=== PATIENT | male | born 1995 | race Caucasian/White ===

== ENCOUNTER 2018-02-24 20:58 | Emergency (ER) | payer OTHER ==
[2018-02-24 21:04] VITALS: BP 153/80
[2018-02-24] MEDS ORDERED: PREDNISONE 20 MG TABLET PO ONE (21:24)
[2018-02-24] MEDS ORDERED: HYDROXYZINE PAMOATE 50 MG CAPSULE PO ONE (21:24)
--- NOTE | 2018-02-24 21:27 | ER Document Report ---
HPI - HPI Patient complains to provider of: Skin rash Onset: Other - 2 weeks Onset/Duration: Persistent Pain Level: 5 Context: Patient complains of pruritic skin rash for the past 2 weeks. Patient denies any new foods medications or detergents. Patient denies any recent gardening or possible exposure to poison jose. Associated Symptoms: Other - Skin rash. denies: Fever, Headache Exacerbated by: Denies Relieved by: Denies Similar symptoms previously: No Recently seen / treated by doctor: No - ROS ROS below otherwise negative: Yes Systems Reviewed and Negative: Yes All other systems reviewed and negative - CONSTITUTIONAL Constitutional: DENIES: Fever, Chills - EENT EENT: DENIES: Sore Throat - NEURO Neurology: DENIES: Headache - GASTROINTESTINAL Gastrointestinal: DENIES: Nausea, Patient vomiting - DERM Skin Color: Erythema Skin Problems: Rash Past Medical History - General Information source: Patient - Social History Smoking Status: Never Smoker Occupation: Active duty Lives with: Spouse/Significant other Family History: Reviewed & Not Pertinent - Medical History Medical History: Negative Surgical Hx: Negative Vertical Provider Document - CONSTITUTIONAL Agree With Documented VS: Yes Exam Limitations: No Limitations General Appearance: WD/WN, No Apparent Distress - INFECTION CONTROL TRAVEL OUTSIDE OF THE [place] IN LAST 30 DAYS: No - HEENT HEENT: Atraumatic, Normal ENT Exam - NECK Neck: Normal Inspection, Supple. negative: Lymphadenopathy-Left, Lymphadenopathy-Right - RESPIRATORY Respiratory: Breath Sounds Normal, No Respiratory Distress - CARDIOVASCULAR Cardiovascular: Regular Rate, Regular Rhythm - BACK Back: Normal Inspection - MUSCULOSKELETAL/EXTREMETIES Musculoskeletal/Extremeties: MAEW - NEURO Level of Consciousness: Awake, Alert, Appropriate Motor/Sensory: No Motor Deficit - DERM Integumentary: Warm, Dry, Rash - Patient with diffuse erythematous maculopapular rash with excoriations to extremities and face. Rash to trunk in a sun exposed distribution pattern Course - Re-evaluation Re-evalutation: 02/24/18 21:26 Patient encouraged to follow-up with his primary doctor for referral to dermatology given how extensive his rash is. Patient advised that he may need allergy testing as well. Patient without any difficulty breathing or swallowing , no concern for anaphylaxis. - Vital Signs Vital signs: Temp Pulse Resp BP Pulse Ox 97.8 F 92 16 153/80 H 98 02/24/18 21:03 02/24/18 21:03 02/24/18 21:03 02/24/18 21:03 02/24/18 21:03 Discharge - Discharge Clinical Impression: Skin rash Condition: Stable Disposition: HOME, SELF-CARE Instructions: Antihistamines ([facility]), Steroid Medication Additional Instructions: Return immediately for any new or worsening symptoms Followup with your primary care provider, call tomorrow to make a followup appointment Follow-up with dermatology for further evaluation, call tomorrow for an appointment Prescriptions: Hydroxyzine HCl [Atarax 25 mg Tablet] 1 - 2 tab PO QID #25 tablet Prednisone [Deltasone 5 mg Tablet] 5 mg PO ASDIR PRN #100 tablet PRN Reason: Referrals: [facility] [Provider Group] - Follow up as needed
== END 2018-02-24 21:35 | disposition home or self-care (01) ==
LOC: ER 20:58
DX: R21 Rash and other nonspecific skin eruption (principal); L29.9 Pruritus, unspecified
CPT/HCPCS: 99282; J7512

== ENCOUNTER 2018-05-14 10:49 | Emergency (ER) | payer OTHER ==
[2018-05-14 11:05] VITALS: BP 160/89
[2018-05-14] MEDS ORDERED: DOXYCYCLINE HYCLATE 100 MG TABLET PO ONE (12:09)
--- NOTE | 2018-05-14 12:10 | ER Document Report ---
ED Skin Rash/Insect Bite/Abscs - General Chief Complaint: Rash Stated Complaint: RASH Time Seen by Provider: 05/14/18 11:29 Mode of Arrival: Ambulatory Information source: Patient Notes: 22-year-old male presented to ED for complaint of rash to face neck and left arm. Patient states he has been seen multiple times for this rash and has been put on prednisone for about 2 months. He has a dermatology appointment in May. 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 He states he supposed to be leaving the country pretty soon and is running out of his prednisone. He states he knows it is just the type of acne but it is painful and itchy and he needs something to help with that now. Patient is alert and oriented respirations regular and unlabored speaking in full sentences walking with a even steady gait. TRAVEL OUTSIDE OF THE [place] IN LAST 30 DAYS: No - HPI Patient complains to provider of: Skin rash/lesion Onset: Other - More than 2 months Onset/Duration: Persistent Quality of pain: Burning - Itchy Severity: Moderate Pain Level: 3 Skin Character: Erythema, Rash Quality of rash: Itchy, Painful, Burning Identify cause: Yes - Been seen multiple times Exacerbated by: Denies Relieved by: Denies Similar symptoms previously: Yes Recently seen / treated by doctor: Yes - Related Data Allergies/Adverse Reactions: No Known Allergies Allergy (Unverified 05/14/18 10:57) Past Medical History - General Information source: Patient - Social History Smoking Status: Never Smoker Frequency of alcohol use: None Drug Abuse: None Lives with: Family Family History: Reviewed & Not Pertinent Patient has suicidal ideation: No Patient has homicidal ideation: No - Past Medical History Cardiac Medical History: Reports: None Pulmonary Medical History: Reports: None EENT Medical History: Reports: None Neurological Medical History: Reports: None Endocrine Medical History: Reports: None Renal/ Medical History: Reports: None Malignancy Medical History: Reports None GI Medical History: Reports: None Musculoskeletal Medical History: Reports None Skin Medical History: Reports None Psychiatric Medical History: Reports: None Traumatic Medical History: Reports: None Infectious Medical History: Reports: None Surgical Hx: Negative Past Surgical History: Reports: None - Immunizations Immunizations up to date: Yes Hx Diphtheria, Pertussis, Tetanus Vaccination: Yes Review of Systems - Review of Systems Constitutional: No symptoms reported EENT: No symptoms reported Cardiovascular: No symptoms reported Respiratory: No symptoms reported Gastrointestinal: No symptoms reported Genitourinary: No symptoms reported Male Genitourinary: No symptoms reported Musculoskeletal: No symptoms reported Skin: Rash - Red and inflamed acne to face neck upper back Hematologic/Lymphatic: No symptoms reported Neurological/Psychological: No symptoms reported -: Yes All other systems reviewed and negative Physical Exam - Vital signs Vitals: Temp Pulse Resp BP Pulse Ox 98.5 F 92 16 160/89 H 98 05/14/18 11:03 05/14/18 11:03 05/14/18 11:03 05/14/18 11:03 05/14/18 11:03 Interpretation: Normal - General General appearance: Appears well, Alert - HEENT Head: Normocephalic, Atraumatic Eyes: Normal Pupils: PERRL - Respiratory Respiratory status: No respiratory distress Chest status: Nontender Breath sounds: Normal Chest palpation: Normal - Cardiovascular Rhythm: Regular Heart sounds: Normal auscultation Murmur: No - Abdominal Inspection: Normal Distension: No distension Bowel sounds: Normal Tenderness: Nontender Organomegaly: No organomegaly - Back Back: Normal, Nontender - Extremities General upper extremity: Normal inspection, Nontender, Normal color, Normal ROM, Normal temperature General lower extremity: Normal inspection, Nontender, Normal color, Normal ROM, Normal temperature, Normal weight bearing. No: Roger's sign - Neurological Neuro grossly intact: Yes Cognition: Normal Orientation: AAOx4 [place] Coma Scale Eye Opening: Spontaneous [place] Coma Scale Verbal: Oriented [place] Coma Scale Motor: Obeys Commands [place] Coma Scale Total: 15 Speech: Normal Motor strength normal: LUE, RUE, LLE, RLE Sensory: Normal - Psychological Associated symptoms: Normal affect, Normal mood - Skin Skin Temperature: Warm Skin Moisture: Dry Skin Color: Normal Skin irregularity: Rash - Inflamed acne Location of irregularity: Face, Neck, Chest - Upper chest, Back - Upper back Character of irregularity: Erythematous Irregularity with: Tenderness, Inflammation Course - Vital Signs Vital signs: Temp Pulse Resp BP Pulse Ox 98.5 F 92 16 160/89 H 98 05/14/18 11:03 05/14/18 11:03 05/14/18 11:03 05/14/18 11:03 05/14/18 11:03 Discharge - Discharge Clinical Impression: Rash and nonspecific skin eruption Condition: Stable Disposition: HOME, SELF-CARE Additional Instructions: Acne Acne is a disease of the skin's sebaceous glands. These "pores" produce a waxy substance called sebum. Before puberty, these glands are not very active. Acne is caused by hormones, which lead to excess production of sebum and bacterial inflammation in the glands. It can range in severity from an occasional pimple to constant multiple deep abscesses that leave scars. Blackheads: These are pores clogged with sebum and skin cells. The exposed material turns black. Whiteheads: Bacteria growing in the enlarged pore cause inflammation. A white collection of trapped pus, surrounded by red raised skin, is also called a "pimple." Furuncles and boils: This is the most serious stage of acne. An infected pore lets bacteria invade the deeper layers below the skin. A hard, red, tender lump forms. A collection of pus is at the core of this lump. This type of acne can leave significant scars. Modern acne treatment is usually very effective, although it may take up to four weeks before you notice improvement. Benzoyl peroxide cream or gel can treat milder cases. Prescription medicines used for acne include antibiotic pills, antibiotic skin treatments, and tretinoin (Retin-A). Skin gels and lotions can make the skin red, dry, and peeling. Severe cases may require Accutane. Accutane can have significant side effects, so treatment needs to be monitored by a physician. Tops of whiteheads may be lanced with a sterile needle to allow pus drainage. Apply hot compresses to tender pimples. Don't squeeze pimples. Acne can be affected by your level of stress, physical activity, and the cleanliness of your skin. It is NOT worsened by anything you eat. Acne goes away with time, although some adults continue to have an occasional flare. Most teenagers with acne will be free of symptoms by the time they're 21 years old. See the doctor if you have a tender lump larger than 1 centimeter (3/8 inch) in size, tender spreading redness, fever, or continued drainage from a skin sore. Doxycycline Doxycycline (Vibramycin, Doryx) is an antibiotic of the tetracycline family. This type of drug is useful for infections of the respiratory tract and genital tract, and is sometimes used for intestinal infections. Unlike most tetracyclines, doxycycline can be taken with food. It is longer acting, and (usually) less prone to side effects than regular tetracycline. Tetracyclines can make you more prone to sunburn. Abdominal cramping, nausea, and diarrhea are occasional side effects. Women may experience vaginal yeast infections. Call the doctor at once if you develop hives, itching, shortness of breath, or lightheadedness. FOLLOW-UP CARE: If you have been referred to a physician for follow-up care, call the physicians office for an appointment as you were instructed or within the next two days. If you experience worsening or a significant change in your symptoms, notify the physician immediately or return to the Emergency Department at any time for re-evaluation. Follow-up with your primary doctor and with your long term care administrator as scheduled. Prescriptions: Doxycycline Hyclate 100 mg PO BID #20 capsule Forms: Elevated Blood Pressure
== END 2018-05-14 12:22 | disposition home or self-care (01) ==
LOC: ER 10:49
DX: R21 Rash and other nonspecific skin eruption (principal)
CPT/HCPCS: 99283

== ENCOUNTER 2018-05-15 08:28 | Emergency (ER) | payer OTHER ==
[2018-05-15] MEDS ORDERED: NORMAL SALINE 1000 ML 1,000 ML IV ONE (09:35)
[2018-05-15 10:11] LABS: ABSOLUTE BASOPHILS # (AUTO) 0.1 10^3/uL (0.0-0.2); ABSOLUTE EOSINOPHILS # (AUTO) 0.5 10^3/uL (0.0-0.6); ABSOLUTE LYMPHOCYTES (AUTO) 2.1 10^3/uL (0.5-4.7); ABSOLUTE MONOCYTES (AUTO) 1.4 10^3/uL (0.1-1.4); ABSOLUTE NEUT (AUTO) 10.1 10^3/uL (1.7-8.2); BASOPHILS % (AUTO) 0.4 % (0-2); EOSINOPHILS % (AUTO) 3.7 % (0-6); HEMATOCRIT 50.7 % (37.9-51.0); HEMOGLOBIN 17.6 g/dL (13.5-17.0); LYMPHOCYTES % (AUTO) 14.9 % (13-45); MEAN CORPUSCULAR HEMOGLOBIN 29.5 pg (27.0-33.4); MEAN CORPUSCULAR HGB CONC 34.8 g/dL (32.0-36.0); MEAN CORPUSCULAR VOLUME 85 fl (80-97); MONOCYTES % (AUTO) 9.9 % (3-13); PLATELET COUNT 447 10^3/uL (150-450); RED BLOOD COUNT 5.98 10^6/uL (4.35-5.55); RED CELL DISTRIBUTION WIDTH 13.6 % (11.5-14.0); SEGMENTED NEUTROPHILS % (AUTO) 71.1 % (42-78); TOTAL CELLS COUNTED % (AUTO) 100 %; WHITE BLOOD COUNT 14.1 10^3/uL (4.0-10.5)
[2018-05-15 10:26] LABS: ANION GAP 11 (5-19); BLOOD UREA NITROGEN 17 mg/dL (7-20); CALCIUM 10.3 mg/dL (8.4-10.2); CARBON DIOXIDE 30 mmol/L (22-30); CHLORIDE 100 mmol/L (98-107); GLUCOSE 79 mg/dL (75-110); POTASSIUM 4.4 mmol/L (3.6-5.0); SODIUM 140.9 mmol/L (137-145)
--- NOTE | 2018-05-15 10:38 | RADIOLOGY REPORT (SQ) ---
EXAM DESCRIPTION: CT FACIAL AREA WITH COMPLETED DATE/TIME: 05/15/2018 10:09 am REASON FOR STUDY: concern for orbital cellulitis left eye COMPARISON: None. TECHNIQUE: Post contrast images through the facial bones and orbits windowed for bone and soft tissu e. Additional coronal and sagittal reconstructed images reviewed. All images stored on PACS. All CT scanners at this facility use dose modulation, iterative reconstruction, and/or weight based d osing when appropriate to reduce radiation dose to as low as reasonably achievable (ALARA). [facility]: Dose Right [facility]: CareDose [facility]: Dose Right [facility]: Teradose 4D [facility]: FanXT CONTRAST TYPE AND DOSE: contrast/concentration: Isovue 350.00 mg/ml; Total Contrast Delivered: 75.0 ml; Total Saline Delivered: 55.0 ml RENAL FUNCTION: Not available. RADIATION DOSE: CT Rad equipment meets quality standard of care and radiation dose reduction techniq ues were employed. CTDIvol: 30.4 mGy. DLP: 551 mGy-cm. . LIMITATIONS: None. FINDINGS: FACIAL BONES: No fracture or bone lesion. ORBITS: Intact. No fracture. Symmetric intact globes and retroorbital soft tissues. PARANASAL SINUSES: Mucosal thickening is noted within the maxillary and ethmoid sinuses. No abnormal ity of the sphenoid sinus. Nasal septal deviation to the left. SOFT TISSUES: There is evidence of soft tissue thickening preseptal region of left orbit and adjacen t to left nasal bone extending laterally in region of zygoma. These findings are consistent with joel lulitis. No evidence of intraorbital extension. INFERIOR BRAIN: Limited view. No acute findings. OTHER: There is evidence of a dominant right vertebral artery. No definite abnormality of visualized intracranial vessels seen. No abnormality of the visualized right and left common carotid and inter nal carotid vessels. Small periparotid and cervical nodes noted. IMPRESSION: Evidence of preseptal cellulitis of the left orbit and cellulitis of left nasal region. COMMENT: Report called to Dr. Huang. TECHNICAL DOCUMENTATION: JOB ID: [id number]-69 Quality ID # [id number]: Final reports with documentation of one or more dose reduction techniques (e.g., Au tomated exposure control, adjustment of the mA and/or kV according to patient size, use of iterative reconstruction technique) 2010 [employer]- All Rights Reserved Reading location - IP/workstation name: [email or web address]
[2018-05-15] MEDS ORDERED: CEFTRIAXONE 2 GM/D5W RTU 2 GM/50 ML RTUPB IV ONE (11:23)
--- NOTE | 2018-05-15 12:08 | ER Document Report ---
ED Eye Complaint - General Chief Complaint: Eye Problem Stated Complaint: EYE PAIN Time Seen by Provider: 05/15/18 08:53 Mode of Arrival: Ambulatory Information source: Patient TRAVEL OUTSIDE OF THE [place] IN LAST 30 DAYS: No - HPI Patient complains to provider of: eye swelling Onset: Other - Is a 22-year-old man with chronic rash over the last several months that presents for evaluation of facial swelling over the left side of the face for which she was evaluated yesterday. He has been seen by primary physician in regards to the rash which she has chronically and is scheduled to see a consumer relations specialist in the coming month yesterday had been seen in the emergency department and told that he had acne and was started on tetracycline. He returned because his left eye seemed to swell thereafter and his vision seems somewhat blurred because of the junk around his eye. He denies fevers or chills, lightheadedness, chest pain shortness of breath abdominal pain diarrhea constipation dysuria. Nothing is seem to make this any better, time seems to be making it worse. Eye location: Left Injury: No - Related Data Allergies/Adverse Reactions: No Known Allergies Allergy (Verified 05/15/18 08:29) Past Medical History - General Information source: Patient - Social History Smoking Status: Unknown if Ever Smoked Family History: Reviewed & Not Pertinent Renal/ Medical History: Denies: Hx Peritoneal Dialysis - Immunizations Immunizations up to date: Yes Hx Diphtheria, Pertussis, Tetanus Vaccination: Yes Review of Systems - Review of Systems -: Yes All other systems reviewed and negative Physical Exam - Vital signs Vitals: Temp Pulse Resp BP Pulse Ox 98.2 F 92 18 148/97 H 97 05/15/18 08:31 05/15/18 08:31 05/15/18 08:31 05/15/18 08:31 05/15/18 08:31 Interpretation: Normal - General General appearance: Appears well, Alert - HEENT Head: Normocephalic, Atraumatic Eyes: Normal Pupils: PERRL - Respiratory Respiratory status: No respiratory distress Chest status: Nontender Breath sounds: Normal Chest palpation: Normal - Cardiovascular Rhythm: Regular Heart sounds: Normal auscultation Murmur: No - Abdominal Inspection: Normal Distension: No distension Bowel sounds: Normal Tenderness: Nontender Organomegaly: No organomegaly - Back Back: Normal, Nontender - Extremities General upper extremity: Normal inspection, Nontender, Normal color, Normal ROM, Normal temperature General lower extremity: Normal inspection, Nontender, Normal color, Normal ROM, Normal temperature, Normal weight bearing. No: Roger's sign - Neurological Neuro grossly intact: Yes Cognition: Normal Orientation: AAOx4 [place] Coma Scale Eye Opening: Spontaneous [place] Coma Scale Verbal: Oriented [place] Coma Scale Motor: Obeys Commands [place] Coma Scale Total: 15 Speech: Normal Motor strength normal: LUE, RUE, LLE, RLE Sensory: Normal - Psychological Associated symptoms: Normal affect, Normal mood - Skin Skin Temperature: Warm Skin Moisture: Dry Skin Color: Other - Circular erythematous lesions extending from the left neck up along the left base with small comedones scattered along that side of the face Course - Re-evaluation Re-evalutation: 22-year-old man with some swelling in the left side of the face as well as a some purulent comedones overlying those. He does say that it hurts slightly to move his left eye. His rash is more consistent with a potential super imposed cellulitis overlying this chronic rash which she has had in the past, given the previous pictures of his rash is been chronic in nature. Because of his pain with movement of the left eye will obtain CT of the orbits for possible post septal cellulitis. Patient had labs drawn through triage which demonstrated leukocytosis no other o bvious abnormalities. CT orbits does not demonstrate a post septal cellulitis but is preseptal cellu litis. Current plan will be for the administration of Rocephin IV while in emergency department and the initiation of Keflex in the outpatient setting, do not believe this patient requires inpatient admission at this time given his otherwise well appearance. His visual disturbance as a result of some of a junk and dry skin around the eye. Current plan will be for this patient undergo discharge home with a prescription for Keflex. He has been encouraged to follow-up with an bucket pusher this week. He will return in case of any worsening difficulty with vision or pain with movement of the left eye. - Vital Signs Vital signs: Temp Pulse Resp BP Pulse Ox 98.3 F 98 16 142/97 H 98 05/15/18 13:41 05/15/18 13:41 05/15/18 13:41 05/15/18 13:41 05/15/18 13:41 - Laboratory Result Diagrams: 05/15/18 09:55 05/15/18 09:55 Laboratory results interpreted by me: 05/15/18 05/15/18 09:55 09:55 WBC 14.1 H RBC 5.98 H Hgb 17.6 H Absolute Neutrophils 10.1 H Calcium 10.3 H Discharge - Discharge Clinical Impression: Preseptal cellulitis of left eye, Skin infection Eye pain Qualifiers: Laterality: unspecified laterality Qualified Code(s): H57.10 - Ocular pain, unspecified eye Condition: Good Disposition: HOME, SELF-CARE Instructions: Antibiotic Therapy ([facility]), Cellulitis ([facility]), Cephalexin ([facility]) Additional Instructions: You were seen today in the emergency department for your eye swelling and pain. You had evaluation including a CAT scan. You need to schedule an appointment with an bucket pusher this week. They need to see you, because it is a holiday if they are unable to see you and your primary doctor is unable to see you can return to the emergency room in case of any worsening. If you have pain in the eyeball itself, your eye seems to be bulging, or you are unable to see she return the emergency room. Use warm compresses at least twice daily for 15 minutes over the eye. If you have any other symptoms he should return the emergency room. Use the antibiotic prescribed to you as directed. You can call the consumer relations specialist for sooner appointment. Prescriptions: Cephalexin Monohydrate [Keflex 500 mg Capsule] 500 mg PO Q6H 10 Days #40 capsule
[2018-05-15] MEDS ORDERED: CEFTRIAXONE SODIUM 2,000 MG in DEXTROSE 5%-WATER 100 ML IV ONE (12:30)
[2018-05-15 13:42] VITALS: BP 142/97
== END 2018-05-15 13:41 | disposition home or self-care (01) ==
LOC: ER 08:28
DX: L03.213 Periorbital cellulitis (principal); L70.0 Acne vulgaris; H57.12 Ocular pain, left eye
CPT/HCPCS: 99284; 96361; 96365; 36415; 85025; 80048; 70487; J7030; J0696